=== PATIENT | female | born 1985 | race Caucasian/White ===

== ENCOUNTER 2021-03-26 06:16 | Emergency (ER) | payer MEDICAID ==
[~2021-03-26] VITALS: Ht 162.6 cm; Wt 100.0 kg
[2021-03-26 06:36] VITALS: BP 110/68
[2021-03-26] MEDS ORDERED: morphine 4 MG/ML inj SYRINge IM ONE (07:15)
[2021-03-26] MEDS ORDERED: HYDR-3965 PO (07:20)
== END 2021-03-26 07:55 | disposition home or self-care (01) ==
LOC: ER 06:17
DX: R07.89 Other chest pain (principal); J45.909 Unspecified asthma, uncomplicated; Z98.890 Other specified postprocedural states; Z79.899 Other long term (current) drug therapy
CPT/HCPCS: 96372; 99283; J2270